=== PATIENT | male | born 1955 | race Caucasian/White ===

== ENCOUNTER → 2019-12-28 | Day surgery (SDC) | payer OTHER ==
[~2019-12-28] MED LIST: AMLODIPINE BESYL5 MG PO; ATORVASTATIN CA20 MG PO; FENTANYL CITRATE/PF 100MCG/2 ML INJ ONE; GLYCOPYRROLATE INJ 0.2 MG/ML VIAL ONE; IRBESARTAN-HCT1 EACH PO; LIDOCAINE HCL 2% LOCAL INJ 5 ML SDV VIAL INJ ONE; MIDAZOLAM HCL 2 MG/2 ML VIAL ONE; PROPOFOL IV EMULSION 10 MG/ML 50 ML VIAL ONE
--- OUTSIDE RECORDS SUMMARY | 2019-12-28 06:49 | XMS REPORT ---
Author Author [facility] Address Unknown Phone Unavailable Care Team Providers Care Tobacco Baler Name Role Phone Unavailable Unavailable Payers Payer Name Policy Type Policy Number Effective Date Expiration Date Problems This patient has no known problems. Allergies, Adverse Reactions, Alerts This patient has no known allergies or adverse reactions. Medications This patient has no known medications. Results Test Description Test Time Test Comments Text Results Atomic Results Result Comments - DUP VEIN CESAR 2019-10-12 11:52:00 Name: CU[facility] : 1955 Age/S: 63 / M [address] [place] [address] Blvd Unit #: [id number] Loc: [place] [address] Phys: Kamron Hillman DO Acct: [id number] Dis Date: Status: REG CLI PHONE #: [phone] Exam Date: 10/12/2019 1419 FAX #: [phone] Reason: LOWER EXTREMITY EDEMA. EXAMS: CPT CODE: [id number] DUP VEIN CESAR [id number] PROCEDURE: BILATERAL LOWER EXTREMITY VENOUS ULTRASOUND INDICATION: Pain left calf, lower extremity edema COMPARISON: None. TECHNIQUE: Sonographic evaluation of the bilateral lower extremity veins was performed using high resolution B-mode, pulse and color Doppler imaging. FINDINGS: RIGHT: The common femoral, femoral, popliteal and visualized calf veins are patent. Normal venous waveforms. The saphenofemoral junction is unremarkable. LEFT: The common femoral, femoral, popliteal and visualized calf veins are patent. Normal venous waveforms. The saphenofemoral junction is unremarkable. Left popliteal fossa Benites's cyst measuring 54 x 23 x 26 mm. Low level internal debris noted. IMPRESSION: 1. No deep venous thrombosis. 2. Left Bake r's cyst SL: [id number] at 1152 Reported and signed by: Chidi Moses M.D. CC: Tasha French MD; Kamron Hillman DO Technologist: Prudence Mg RDMS(Stevie)(BR) Trnscb Date/Time: 10/12/2019 (3702) [email or web address] Orig Print D/T: S: 10/12/2019 (2684) Probe: PAGE 1 Signed Report
[2019-12-28 10:00] VITALS: BP 138/84
== END | disposition home or self-care (01) ==
LOC: OR 06:43
PROVIDERS: ATTEND Internal Medicine Gastroenterology
DX: Z12.11 Encounter for screening for malignant neoplasm of colon (principal); D12.3 Benign neoplasm of transverse colon; D12.4 Benign neoplasm of descending colon; D12.8 Benign neoplasm of rectum; K57.30 Diverticulosis of large intestine without perforation or abscess without bleeding; K64.8 Other hemorrhoids; R53.1 Weakness; I10 Essential (primary) hypertension; E78.5 Hyperlipidemia, unspecified; Z01.810 Encounter for preprocedural cardiovascular examination; Z79.82 Long term (current) use of aspirin; Z87.891 Personal history of nicotine dependence
CPT/HCPCS: 45384; 45385; 93005; J2001; J2250; J2704; J3010; 45378